=== PATIENT | female | born 1980 | race Caucasian/White ===

== ENCOUNTER 2017-06-23 09:57 | Inpatient (IN) | payer MEDICAID, OTHER ==
[~2017-06-23] VITALS: Ht 180.3 cm; Wt 101.1 kg
[2017-06-23] MEDS ORDERED: ACETAMINOPHEN 325 MG TAB PO PRN (10:45)
[2017-06-23] MEDS ORDERED: LORazepam 1 MG TAB PO PRN (10:45)
[2017-06-23] MEDS ORDERED: diphenhydrAMINE HCL 50 MG CAP PO PRN (10:45)
[2017-06-23] MEDS ORDERED: MAGNESIUM HYDROXIDE SUSP 30 ML CUP PO PRN (10:45)
[2017-06-23] MEDS ORDERED: diphenhydrAMINE HCL 50 MG/ML VIAL IM PRN (10:45)
[2017-06-23] MEDS ORDERED: ALUMINUM/MAGNESIUM/SIMETH 30 ML CUP PO PRN (10:45)
[2017-06-23] MEDS ORDERED: LORazepam 2 MG/ML VIAL IM PRN (10:45)
--- NOTE | 2017-06-23 10:52 | HHI.HP ---
Provisional Diagnosis Admission Date Jun 23, 2017 at 10:34 [place]. Bipolar disorder Certification of Person's Competence To Provide Express and Informed Consent I have personally examined Natalya Steve , a person being served at [facility] on, Jun 23, 2017 10:44. Express and informed consent means consent voluntarily given in writing, by a competent person, after sufficient explanation and disclosure of the subject matter involved to enable the person to make a knowing and willful decision without any element of force, fraud, deceit, duress, or other form of constraint or coercion. This person is 18 years of age or older, is not now known to be incompetent to consent to treatment with a guardian advocate, and does not have a health care surrogate or proxy currently making medical treatment decisions. I have found this person to be one of the following: [X] Competent to provide express and informed consent, as defined above, for voluntary admission to this facility and is competent to provide express and informed consent for treatment. He/she has the consistent capacity to make well reasoned, willful, and knowing decisions concerning his or her medical or mental health treatment. The person fully and consistently understands the purpose of the admission for examination/placement and is fully capable of personally exercising all rights assured under [place] Incompetent to provide express and informed consent to voluntary admission, and this is incompetent to provide express and informed consent to treatment. The person must be transferred to involuntary status and a petition for a guardian advocate filed with the Circuit Court. [] Refusing to provide express and informed consent to voluntary admission but is competent to provide express and informed consent for treatment. The person must be discharged or transferred to involuntary status. Form shall be completed within 24 hours of a person's arrival at the receiving facility and filed in the clinical record of each person: 1. Admitted on a voluntary basis 2. Permitted to provide express and informed consent to his/her own treatment 3. Allowed to transfer from involuntary to voluntary status 4. Prior to permitting a person to consent to his or her own treatment after having been previously found incompetent to consent to treatment. History of Present Illness Capacity: Has Capacity HPI 36-year-old female brought in under a Colón act for suicidal behavior, highly agitated, after the recent breakup of a year plus long relationship. Patient apparently called her daughter this morning and indicated she was feeling suicidal. She also apparently sent her daughter a picture of her having begun to cut her wrists. Daughter is 15 years old and does not live with her mother and instead lives with friends. Patient was very agitated and threatening since her arrival in the [facility] emergency room, using racial epithets, being uncooperative with the rules of changing into hospital gowns, inappropriately attempting to expose herself to this physician, looking for ways to elope, threatening to harm staff members and this physician, etc. This physician did speak with the patient's 15-year-old daughter, who indicates she is afraid for her mother's safety and that her mother has been acting particularly irrational over the last several days, since the breakup of her relationship. She also states her mother has been diagnosed with bipolar disorder but has not been obtaining treatment regularly for an unknown period of time. When confronted with this information, the patient did reluctantly admit that she had not been taking her medicines for at least a month. She refused to speak with this physician and threatened to throw coffee on this physician. She remains a uncooperative historian/patient and required physical locked seclusion. Review of Systems Psychiatric: COMPLAINS OF: Mood changes, Agitation, Suicidal Ideation Except as stated in HPI: all other systems reviewed are Neg Past Psych History Psychological trauma history Unknown Violence risk - others (6 mos) High Violence risk - self (6 mos) High Substance Abuse History Drugs/Alcohol past 12 months Denied Past Family Social History Coded Allergies: No Known Allergies (Unverified , 06/23/17) Per pt. Current Medications Medications (Trade) Dose Ordered Sig/Krystina Route Start Time Stop Time Status Last Admin (Ativan) 1 mg Q6H PRN PO 06/23/17 10:45 (Ativan Inj) 1 mg Q6H PRN IM 06/23/17 10:45 (Benadryl) 50 mg Q6H PRN PO 06/23/17 10:45 (Benadryl Inj) 50 mg Q6H PRN IM 06/23/17 10:45 (Tylenol) 650 mg Q4H PRN PO 06/23/17 10:45 (Milk Of Magnesia Liq) 30 ml DAILY PRN PO 06/23/17 10:45 (Mag-Al Plus Susp Liq) 30 ml Q6H PRN PO 06/23/17 10:45 Family Psych History Positive for mood disorders. Social History Patient lives alone and daughter states she has had patient live with her previously. Patient is not welcome at daughters home due to patient's previously inappropriate behavior. Patient's boyfriend apparently had discussed marriage with patient prior to breaking up with her. As stated above , patient has been noncompliant with medicines for bipolar disorder. She denies history of alcohol and drug abuse. Patient's Strengths (min. 2) GENERAL: SKIN: Warm and dry. HEAD: Normocephalic. EYES: No scleral icterus. No injection or drainage. NECK: Supple, trachea midline. No JVD or lymphadenopathy. CARDIOVASCULAR: Regular rate and rhythm without murmurs, gallops, or rubs. RESPIRATORY: Breath sounds equal bilaterally. No accessory muscle use. GASTROINTESTINAL: Abdomen soft, non-tender, nondistended. MUSCULOSKELETAL: No cyanosis, or edema. BACK: Nontender without obvious deformity. No CVA tenderness. Physical Exam GENERAL: SKIN: Warm and dry. HEAD: Normocephalic. EYES: No scleral icterus. No injection or drainage. NECK: Supple, trachea midline. No JVD or lymphadenopathy. CARDIOVASCULAR: Regular rate and rhythm without murmurs, gallops, or rubs. RESPIRATORY: Breath sounds equal bilaterally. No accessory muscle use. GASTROINTESTINAL: Abdomen soft, non-tender, nondistended. MUSCULOSKELETAL: No cyanosis, or edema. BACK: Nontender without obvious deformity. No CVA tenderness. Mental Status Examination Appearance: Appropriate, Disheveled Consciousness: Alert Orientation: x4 Motor Activity: Normal gait Speech: Rapid Language: Adequate Fund of Knowledge: Adequate Attention and Concentration: Inadequate Memory: Unremarkable Mood: Angry, Oppositional, Irritable Affect: Irritable, Labile Thought Process & Associations: Intact Thought Content: Other Hallucination Type: None Delusion Type: None Suicidal Ideation: Yes Suicidal Plan: Yes Suicidal Intention: Yes Homicidal Ideation: No Homicidal Plan: No Homicidal Intention: No Insight: Fair Judgment: Poor Assessment & Plan Problem List: (1) Bipolar disorder, curr episode mixed, severe, w/o psychotic features ICD Codes: F31.63 - Bipolar disorder, current episode mixed, severe, without psychotic features Assessment & Plan Estimated LOS: days. 36-year-old female under Colón act for suicidal ideation and suicidal behavior, including attempt to cut her wrists. Currently extremely agitated, physically and verbally threatening, uncooperative, showing poor judgment and poor insight. Patient has required physical and chemical restraints in the emergency department due to her ongoing aggressive behavior. She is felt to be at high risk for harm to self and others and is therefore being admitted for further evaluation and treatment. This physician has ordered a CBC and comprehensive metabolic panel to determine if any infectious process or metabolic process is causing or contributing to her mood disorder. Additionally, this physician has ordered thyroid stimulating hormone levels, vitamin B-12 level and vitamin D level, as deficiencies in these areas can also contribute to her mood disorder. This physician has asked for a hospitalist consult as the patient is overweight and hypertensive at this time as well as uncooperative with history and physical. Furthermore, this physician has ordered an EKG to determine the patient's cardiac conduction status prior to significant alterations in her psychotropic medicines, which can be problematic for her heart. This physician spoke with the patient's nurse, Katlin and the patient's daughter for further information about the patient's recent behavior. Case management will also be involved to assist with further information gathering and disposition planning. Agustin Aguillon MD Jun 23, 2017 10:52
[2017-06-23 10:55] VITALS: BP 117/75; PULSE 88; RESP 18; TEMP 97.3; O2SAT 99
[2017-06-23] MEDS ORDERED: LORazepam 2 MG/ML VIAL IM ONE (11:00)
[2017-06-23] MEDS ORDERED: ZIPRASIDONE MESYLATE 20 MG VIAL IM ONE (11:00)
[2017-06-23] MEDS ORDERED: diphenhydrAMINE HCL 50 MG/ML VIAL IM ONE (11:00)
[2017-06-23] MEDS: CITALOPRAM HYDROBROMIDE 40 MG TAB PO SCH (12:00)
--- NOTE | 2017-06-23 12:12 | PD.CONS ---
HPI Service [facility] Consult Requested By Dr. Aguillon Reason for Consult Consulted for medical history and treatment if needed Primary Care Physician No Primary Care Physician Diagnoses: History of Present Illness This is a 36-year-old female with a history of bipolar disorder who presented with suicidal ideation was [place] henao. Patient did try to cut her left wrist. Denies any pain at the site. She is nurse was present during the interview. Patient stated that she has no medical conditions and no complaints. On review system review to patient and negative. Past Family Social History Allergies: Coded Allergies: No Known Allergies (Unverified , 06/23/17) Per pt. Past Medical History Bipolar disorder Past Surgical History Craniotomy with removal colloid mass Reported Medications Latuda Celexa Active Ordered Medications Current Medications Lorazepam (Ativan) 1 mg Q6H PRN PO MODERATE TO SEVERE ANXIETY; Start 06/23/17 at 10:45 Lorazepam (Ativan Inj) 1 mg Q6H PRN IM MODERATE TO SEVERE ANXIETY; Start 06/23 at 10:45 Diphenhydramine HCl (Benadryl) 50 mg Q6H PRN PO For mild anxiety and/or EPS; Start 06/23/17 at 10:45 Diphenhydramine HCl (Benadryl Inj) 50 mg Q6H PRN IM For mild anxiety and/or EPS ; Start 06/23/17 at 10:45 Acetaminophen (Tylenol) 650 mg Q4H PRN PO Pain 1-5 or Temp >101F; Start at 10:45 Magnesium Hydroxide (Milk Of Magnesia Liq) 30 ml DAILY PRN PO CONSTIPATION; Start 06/23/17 at 10:45 Al Hydrox/Mg Hydrox/Simethicone (Mag-Al Plus Susp Liq) 30 ml Q6H PRN PO DYSPEPSIA; Start 06/23/17 at 10:45 Ziprasidone (Geodon Inj) 20 mg ONCE ONCE IM Last administered on 06/23/17 11 :29; Start 06/23/17 at 11:00; Stop 06/23/17 at 11:03; Status DC Diphenhydramine HCl (Benadryl Inj) 50 mg ONCE ONCE IM Last administered on 11:15; Start 06/23/17 at 11:00; Stop 06/23/17 at 11:03; Status DC Lorazepam (Ativan Inj) 2 mg ONCE ONCE IM Last administered on 06/23/17t 11:15 ; Start 06/23/17 at 11:00; Stop 06/23/17 at 11:03; Status DC Lurasidone HCl (Latuda) 80 mg WITH DINNER PO ; Start 06/23/17 at 18:00 Citalopram Hydrobromide (CeleXA) 40 mg DAILY PO ; Start 06/23/17 at 12:00 Family History Past family history reviewed per patient all negative. Social History Patient smokes one pack per day of tobacco for about 14 years. Occasional disease alcohol. Denies any illicit drug use. Physical Exam Vital Signs Vital Signs Date Time Temp Pulse Resp B/P (MAP) Pulse Ox O2 Delivery O2 Flow Rate FiO2 06/23/17 10:55 97.3 88 18 117/75 (89) 99 Room Air Physical Exam GENERAL: This is a well-nourished, well-developed patient, in no apparent distress. SKIN: Left wrist with a horizontal superficial wound. No discharge noted. HEAD: Atraumatic. Normocephalic. No temporal or scalp tenderness. EYES: Pupils equal round and reactive. Extraocular motions intact. No scleral icterus. No injection or drainage. ENT: Nose without bleeding, purulent drainage or septal hematoma. Throat without erythema, tonsillar hypertrophy or exudate. Uvula midline. Airway patent. NECK: Trachea midline. No JVD or lymphadenopathy. Supple, nontender, no meningeal signs. CARDIOVASCULAR: Regular rate and rhythm without murmurs, gallops, or rubs. RESPIRATORY: Clear to auscultation. Breath sounds equal bilaterally. No wheezes , rales, or rhonchi. GASTROINTESTINAL: Abdomen soft, non-tender, nondistended. No hepato-splenomegaly , or palpable masses. No guarding. MUSCULOSKELETAL: Extremities without clubbing, cyanosis, or edema. No joint tenderness, effusion, or edema noted. No calf tenderness. Negative Homans sign bilaterally. NEUROLOGICAL: Awake and alert. Cranial nerves II through XII intact. Motor and sensory grossly within normal limits. Five out of 5 muscle strength in all muscle groups. Normal speech. Assessment and Plan Assessment and Plan This is a 36-year-old female who was Colón act secondary to suicidal ideation Bipolar disorder/suicide ideation/Colón act -Patient admitted to inpatient psych. Management per psychiatrist. Superficial left wrist laceration -No infection noted. Will give back to trace and. DVT prophylaxis -Encourage ambulation. Patient has no past medical history except for bipolar disorder. Her vitals are stable. There are no active issues. Will sign off. Please call for any concerns. Discussed Condition With patient and his nurse in [place] Idalia Menon MD Jun 23, 2017 12:12
--- NOTE | 2017-06-23 12:36 | PD ---
HPI Chief Complaint: Psychiatric Symptoms Time Seen by Provider: 12:34 Travel History International Travel<30 days: No Contact w/Intl Traveler<30days: No Traveled to known affect area: No History of Present Illness HPI 36 year female presents to the emergency department as a Colón act from [facility]. Patient complains of suicidal ideations. Patient says that she was recently dumped by her significant other and started developing these feelings. Patient denies fever or chills. Denies shortness of breath, chest pain, nausea, vomiting, diarrhea. Patient denies hallucinations. Denies ingestions. [facility] Past Medical History Medical History: Unable to Obtain Diminished Hearing: No Tetanus Vaccination: Unknown ?: Unknown Past Surgical History Surgical History: Unable to Obtain Social History Tobacco Use: No Allergies-Medications (Allergen,Severity, Reaction): Coded Allergies: No Known Allergies (Unverified , 06/23/17) Per pt. Review of Systems Except as stated in HPI: all other systems reviewed are Neg Physical Exam Narrative GENERAL: Well-nourished, well-developed patient. SKIN: Focused skin assessment warm/dry. HEAD: Normocephalic. EYES: No scleral icterus. No injection or drainage. NECK: Supple, trachea midline. No JVD or lymphadenopathy. CARDIOVASCULAR: Regular rate and rhythm without murmurs, gallops, or rubs. RESPIRATORY: Breath sounds equal bilaterally. No accessory muscle use. MUSCULOSKELETAL: No cyanosis, or edema. BACK: Nontender without obvious deformity. No CVA tenderness. Data Data Orders Orders Diet Regular Basic (06/23/17 Lunch) ^ Other Nursing Orders (06/23/17 10:31) Admit Order (Ed Use Only) (06/23/17 10:32) [facility] Medical Decision Making Medical Screen Exam Complete: Yes Emergency Medical Condition: Yes Differential Diagnosis Suicidal ideations, homicidal ideations, bipolar, Narrative Course 36 year female presents to the emergency department as a Colón act from [facility]. Patient complains of suicidal ideations. Patient says that she was recently dumped by her significant other and started developing these feelings. Patient denies fever or chills. Denies shortness of breath, chest pain, nausea, vomiting, diarrhea. Patient denies hallucinations. Denies ingestions. Vital signs stable In the emergency department, patient required Geodon, Ativan, and Benadryl for sedation as she became agitated and is concerned for her safety and others. Patient is a transfer from [place]. Please refer to these notes as well regarding her care. Patient is cleared to see psych. Patient will be admitted to psych for further treatment and evaluation. Diagnosis Primary Impression: Suicidal ideations Condition: Stable Teri Butler Jun 23, 2017 12:36
[2017-06-23] MEDS: BACITRACIN TOP OINT 15 GM TUBE TOPICAL SCH ×2 (15:13→21:00)
[2017-06-23 16:27] VITALS: BP 130/80; PULSE 80; RESP 18; TEMP 98.1; O2SAT 97
[2017-06-23] MEDS: LURASIDONE 80 MG TAB PO SCH (17:30)
[2017-06-24 06:38] VITALS: BP 128/66; PULSE 63; RESP 16; TEMP 97.6; O2SAT 98
[2017-06-24 08:27] LABS: AUTOMATED NEUTROPHIL # 5.8 TH/MM3 (1.8-7.7); BASOPHIL # 0.1 TH/MM3 (0-0.2); BASOPHIL % 0.7 % (0.0-2.0); EOSINOPHIL # 0.2 TH/MM3 (0-0.4); EOSINOPHIL % 1.8 % (0.0-4.0); HEMOGLOBIN 14.6 GM/DL (11.6-15.3); LYMPH % 27.9 % (9.0-44.0); LYMPHOCYTE # 2.5 TH/MM3 (1.0-4.8); MEAN CELL VOLUME 88.7 FL (80.0-100.0); MEAN CORPUSCULAR HEMOGLOBIN 29.4 PG (27.0-34.0); MEAN CORPUSCULAR HGB CONC 33.1 % (32.0-36.0); MEAN PLATELET VOLUME 8.4 FL (7.0-11.0); MONO % 5.4 % (0.0-8.0); MONOCYTE # 0.5 TH/MM3 (0-0.9); NEUT % 64.2 % (16.0-70.0); PLATELET COUNT 276 TH/MM3 (150-450); RED BLOOD COUNT 4.96 MIL/MM3 (4.00-5.30); RED CELL DISTRIBUTION WIDTH 13.4 % (11.6-17.2)
[2017-06-24 08:43] LABS: ALBUMIN 3.2 GM/DL (3.4-5.0); AST (GOT) 12 U/L (15-37); BICARBONATE 29.6 MEQ/L (21.0-32.0); BLOOD UREA NITROGEN 6 MG/DL (7-18); CALCIUM 8.8 MG/DL (8.5-10.1); CHLORIDE 108 MEQ/L (98-107); CHOLESTEROL 113 MG/DL (120-200); CREATININE 0.79 MG/DL (0.50-1.00); GLOMERULAR FILTRATION RATE 82 ML/MIN (>89); GLUCOSE,RANDOM 73 MG/DL (74-106); SODIUM (NA) 143 MEQ/L (136-145)
[2017-06-24] MEDS: BACITRACIN TOP OINT 15 GM TUBE TOPICAL SCH ×2 (09:00→20:16)
[2017-06-24 09:10] LABS: ALKALINE PHOSPHATASE 57 U/L (45-117); ALT (GPT) 15 U/L (10-53); CHOLESTEROL/ HDL RATIO 2.29 RATIO; HDL CHOLESTEROL 49.2 MG/DL (40.0-60.0); LDL CHOLESTEROL 47 MG/DL (0-99); TOTAL BILIRUBIN ADULT 0.4 MG/DL (0.2-1.0); TOTAL PROTEIN 6.3 GM/DL (6.4-8.2); TRIGLYCERIDES 86 MG/DL (42-150)
[2017-06-24] MEDS: CITALOPRAM HYDROBROMIDE 40 MG TAB PO SCH (09:39)
[2017-06-24] MEDS ORDERED: ERGOCALCIFEROL (VIT D2) 50,000 UNIT CAP PO SCH (13:00)
--- NOTE | 2017-06-24 15:11 | HHI.PYPN ---
Subjective Remarks Patient was seen and case discussed with nursing. Patient is perseverative on discharge. She is labile, impulsive and minimizing her reasons for admission. Personality disorder is clearly a factor. Has not needed any ETO's. Compliant with medications area and is sarcastic concerning suicide, denies plan or intent doing so or cutting Mental Status Examination Appearance: Appropriate, Disheveled Consciousness: Alert Orientation: x4 Motor Activity: Normal gait Speech: Rapid Language: Adequate Fund of Knowledge: Adequate Attention and Concentration: Inadequate Memory: Unremarkable Mood: Angry, Oppositional, Irritable Affect: Irritable, Labile Thought Process & Associations: Intact Thought Content: Other Hallucination Type: None Delusion Type: None Suicidal Ideation: No Suicidal Plan: No Suicidal Intention: No Homicidal Ideation: No Homicidal Plan: No Homicidal Intention: No Insight: Fair Judgment: Poor Results Labs Test 06/24/17 06:32 White Blood Count 9.0 TH/MM3 Red Blood Count 4.96 MIL/MM3 Hemoglobin 14.6 GM/DL Hematocrit 44.0 % Mean Corpuscular Volume 88.7 FL Mean Corpuscular Hemoglobin 29.4 PG Mean Corpuscular Hemoglobin Concent 33.1 % Red Cell Distribution Width 13.4 % Platelet Count 276 TH/MM3 Mean Platelet Volume 8.4 FL Neutrophils (%) (Auto) 64.2 % Lymphocytes (%) (Auto) 27.9 % Monocytes (%) (Auto) 5.4 % Eosinophils (%) (Auto) 1.8 % Basophils (%) (Auto) 0.7 % Neutrophils # (Auto) 5.8 TH/MM3 Lymphocytes # (Auto) 2.5 TH/MM3 Monocytes # (Auto) 0.5 TH/MM3 Eosinophils # (Auto) 0.2 TH/MM3 Basophils # (Auto) 0.1 TH/MM3 CBC Comment DIFF FINAL Differential Comment Blood Urea Nitrogen 6 MG/DL Creatinine 0.79 MG/DL Random Glucose 73 MG/DL Total Protein 6.3 GM/DL Albumin 3.2 GM/DL Calcium Level 8.8 MG/DL Alkaline Phosphatase 57 U/L Aspartate Amino Transf (AST/SGOT) 12 U/L Alanine Aminotransferase (ALT/SGPT) 15 U/L Total Bilirubin 0.4 MG/DL Sodium Level 143 MEQ/L Potassium Level 4.0 MEQ/L Chloride Level 108 MEQ/L Carbon Dioxide Level 29.6 MEQ/L Anion Gap 5 MEQ/L Estimat Glomerular Filtration Rate 82 ML/MIN Hemoglobin A1c 5.0 % Triglycerides Level 86 MG/DL Cholesterol Level 113 MG/DL LDL Cholesterol 47 MG/DL HDL Cholesterol 49.2 MG/DL Cholesterol/HDL Ratio 2.29 RATIO Vitamin B12 Level 738 PG/ML 25-Hydroxy Vitamin D Total 14.2 ng/ML Thyroid Stimulating Hormone 3rd Gen 1.360 uIU/ML Vitals/IOs Vital Signs Date Time Temp Pulse Resp B/P (MAP) Pulse Ox O2 Delivery O2 Flow Rate FiO2 06/24/17 06:38 97.6 63 16 128/66 (86) 98 06/23/17 10:55 Room Air Assessment & Plan Problem List: (1) Bipolar disorder, curr episode mixed, severe, w/o psychotic features ICD Codes: F31.63 - Bipolar disorder, current episode mixed, severe, without psychotic features Assessment & Plan Continue current treatment plan Justification for Cont. Inpt. Patient would decompensate in a less restrictive setting Ben Miranda DO Jun 24, 2017 15:11
[2017-06-24] MEDS: LURASIDONE 80 MG TAB PO SCH (18:07)
[2017-06-25] MEDS: BACITRACIN TOP OINT 15 GM TUBE TOPICAL SCH ×2 (09:39→21:00)
[2017-06-25] MEDS: CITALOPRAM HYDROBROMIDE 40 MG TAB PO SCH (09:39)
--- NOTE | 2017-06-25 11:05 | HHI.PR ---
Subjective Remarks Follow up bipolar disorder, suicidal ideation and left wrist laceration. Patient seen and examined in room, lying in bed comfortably. Requesting to go home. Denies any new acute complaints. Lacerating open to air, no drainage, healing. Objective Result Diagram: 06/24/1763106/24/17631 Objective Remarks GENERAL: This is a well-nourished, well-developed patient, in no apparent distress. SKIN: Left wrist with a horizontal superficial wound. No discharge noted. Open to air. HEAD: Atraumatic. Normocephalic. No temporal or scalp tenderness. EYES: Pupils equal round and reactive. Extraocular motions intact. No scleral icterus. No injection or drainage. ENT: Nose without bleeding, purulent drainage or septal hematoma. Throat without erythema, tonsillar hypertrophy or exudate. Uvula midline. Airway patent. NECK: Trachea midline. No JVD or lymphadenopathy. Supple, nontender, no meningeal signs. CARDIOVASCULAR: Regular rate and rhythm without murmurs, gallops, or rubs. RESPIRATORY: Clear to auscultation. Breath sounds equal bilaterally. No wheezes , rales, or rhonchi. GASTROINTESTINAL: Abdomen soft, non-tender, nondistended. No guarding. MUSCULOSKELETAL: Extremities without clubbing, cyanosis, or edema. No joint tenderness, effusion, or edema noted. NEUROLOGICAL: Awake and alert. Cranial nerves II through XII intact. Motor and sensory grossly within normal limits. Five out of 5 muscle strength in all muscle groups. Normal speech. A/P Assessment and Plan This is a 36-year-old female who was Colón act secondary to suicidal ideation Bipolar disorder/suicide ideation/Colón act - Patient admitted to inpatient psych. Management per psychiatrist. Superficial left wrist laceration - No infection noted. - No drainage. - Open to air. DVT prophylaxis - Encourage ambulation. Patient is stable at this time. Will sign off, reconsult if needed. Zonia Duff Jun 25, 2017 11:05
--- NOTE | 2017-06-25 13:10 | HHI.PYPN ---
Subjective Remarks Patient was seen and case discussed with nursing. Patient is less labile today but continues to have many temper tantrums. She was irritable with nursing this morning after he took her bra away given that had a metal wire inside. She remains very perseverative on discharge and minimizes her cutting in her reasons for admission. She is spending her time as "just sleeping my time away so I can go." Compliant with her medications. Mostly seclusive Mental Status Examination Appearance: Appropriate, Disheveled Consciousness: Alert Orientation: x4 Motor Activity: Normal gait Speech: Rapid Language: Adequate Fund of Knowledge: Adequate Attention and Concentration: Inadequate Memory: Unremarkable Mood: Angry, Oppositional, Irritable Affect: Irritable, Labile Thought Process & Associations: Intact Thought Content: Other Hallucination Type: None Delusion Type: None Suicidal Ideation: No Suicidal Plan: No Suicidal Intention: No Homicidal Ideation: No Homicidal Plan: No Homicidal Intention: No Insight: Fair Judgment: Poor Results Vitals/IOs Vital Signs Date Time Temp Pulse Resp B/P (MAP) Pulse Ox O2 Delivery O2 Flow Rate FiO2 06/24/17 06:38 97.6 63 16 128/66 (86) 98 06/23/17 10:55 Room Air Assessment & Plan Problem List: (1) Bipolar disorder, curr episode mixed, severe, w/o psychotic features ICD Codes: F31.63 - Bipolar disorder, current episode mixed, severe, without psychotic features Assessment & Plan Continue current treatment plan Justification for Cont. Inpt. Patient would decompensate in a less restrictive setting Ben Miranda DO Jun 25, 2017 13:10
[2017-06-25 18:00] VITALS: BP 127/77; PULSE 104; RESP 16; TEMP 99; O2SAT 100
[2017-06-25] MEDS: LURASIDONE 80 MG TAB PO SCH (18:37)
[2017-06-26 05:50] VITALS: BP 123/64; PULSE 80; RESP 17; TEMP 97.6; O2SAT 100
[2017-06-26] MEDS: CITALOPRAM HYDROBROMIDE 40 MG TAB PO SCH (08:36)
[2017-06-26] MEDS: BACITRACIN TOP OINT 15 GM TUBE TOPICAL SCH (08:36)
--- NOTE | 2017-06-26 09:10 | EKG ---
Date Performed: 06/24/2017 Time Performed: 16:36:52 PTAGE: 36 years EKG: Sinus rhythm WITH SINUS ARRHYTHMIA POSSIBLE LEFT ATRIAL ENLARGEMENT BORDERLINE ECG NO PREVIOUS TRACING DOCTOR: Rudy Armando Interpretating Date/Time 06/26/2017 09:09:46
[2017-06-26] MEDS ORDERED: CELE40TA PO (10:00)
[2017-06-26] MEDS ORDERED: QC B500O TOPICAL (10:00)
[2017-06-26] MEDS ORDERED: LURA80 PO (10:00)
[2017-06-26] MEDS ORDERED: VITA500012 PO (10:00)
--- NOTE | 2017-06-26 10:01 | HHI.DS ---
Psychiatry Discharge Summary Inpatient Psychiatric care?: Yes Advance Directive: No Reason Not Provided: DEFERRED Mental Health AdvanceDirective: No Health Care Proxy: No Admission Admission Date Jun 23, 2017 at 10:34 Admission Diagnosis: (1) Bipolar disorder, curr episode mixed, severe, w/o psychotic features ICD Code: F31.63 - Bipolar disorder, current episode mixed, severe, without psychotic features Brief History 36-year-old female brought in under a Colón act for suicidal behavior, highly agitated, after the recent breakup of a year plus long relationship. Patient apparently called her daughter this morning and indicated she was feeling suicidal. She also apparently sent her daughter a picture of her having begun to cut her wrists. Daughter is 15 years old and does not live with her mother and instead lives with friends. Patient was very agitated and threatening since her arrival in the [facility] emergency room, using racial epithets, being uncooperative with the rules of changing into hospital gowns, inappropriately attempting to expose herself to this physician, looking for ways to elope, threatening to harm staff members and this physician, etc. This physician did speak with the patient's 15-year-old daughter, who indicates she is afraid for her mother's safety and that her mother has been acting particularly irrational over the last several days, since the breakup of her relationship. She also states her mother has been diagnosed with bipolar disorder but has not been obtaining treatment regularly for an unknown period of time. When confronted with this information, the patient did reluctantly admit that she had not been taking her medicines for at least a month. She refused to speak with this physician and threatened to throw coffee on this physician. She remains a uncooperative historian/patient and required physical locked seclusion. Tobacco Use In Past 30 Days: 5 or More Cigarettes/Day Alcohol Use: 2-4 Times Per Month Hospital Course Patient was admitted to a locked, inpatient psychiatric unit. A general medical consultation was obtained. Appropriate precautions were in place throughout patient's hospital stay. Patient was seen and examined on the unit by psychiatry. Home psychotropic medications were resumed. Patient tolerated psychiatric medications well without side effects. Behavior improved with benefit a resumption of medications. There was no evidence of any suicidality or homicidality on the inpatient unit. On the day of discharge: Patient seen and examined with nurse. Chart reviewed. I note that the patient's Colón act expires this morning and has not been addressed by either the admitting physician or weekend rounding physician. Case discussed with nursing staff reports that the patient has been no behavioral problem overnight. Case discussed with counselor. On my examination today, the patient is requesting discharge from the inpatient psychiatric unit today. She denies any suicidal or homicidal ideation, intent or plan on direct questioning and contracts for safety. She says that she superficially cut herself because "my ex told me to kill myself." She also says that prior to admission her ex had told her to stop her medications and so she had been unmedicated for about 2 weeks prior to self injuring. She denies any history of suicide attempts. She denies any history of nonsuicidal self-injurious behavior. She is adopted and so does not know much about her family history and is unsure whether there is a family history of suicide. She says that the amphetamines in her urine are related to Adderall that is prescribed to her. She does admit to abuse of cannabis. Patient describes her mood as "Andrew," which with clarification I find means good. I can elicit no depressive or hypomanic/manic symptoms at this time. She denies any audiovisual hallucinations. I can elicit no delusional beliefs. There is no evidence of impairment in reality construction in this patient at this time. She denies any side effects from medications. She reports that she has an adequate supply of psychotropic medications at home. She has no physical complaints. With the patient's permission, I have obtained collateral from her daughter, Sharita, at [phone] on the day of discharge. Sharita reports that she has no safety concerns about the patient being discharged home today. She describes the patient's presenting self-injurious behavior as an impulsive reaction to difficulties with ex boyfriend. I have recommended that Sharita secure the home a while potential means of harm to self or others including but not limited to guns, knives and firearms out of an abundance of caution in advance of the patient's return home. I have also educated her regarding the mechanisms to have the patient brought to the emergency room for urgent psychiatric evaluation including Colón act and ex parte. Suicide and violence risk assessment on day of discharge both suggest low imminent risk, although substance use may constitute some degree of chronic risk and I have recommended abstinence from substances going forward. Chemical dependency evaluation and treatment is also recommended. The patient does not meet criteria for involuntary psychiatric hospitalization at this time and her Colón act expires this morning. I have no basis to retain her on the unit over her objection any longer. The patient will be discharged home today with psychiatric follow-up as arranged by counselor. Patient is also to follow-up with primary care. I have counseled the patient to return to the psychiatric emergency room for any concerning psychiatric symptoms. Results Blood Pressure 123 / 64 Vital Signs Date Time Temp Pulse Resp B/P (MAP) Pulse Ox O2 Delivery O2 Flow Rate FiO2 06/26/17 05:50 97.6 80 17 123/64 (83) 100 06/23/17 10:55 Room Air Laboratory Tests Test 06/23/17 11:25 06/24/17 06:32 Urine Amphetamines Screen POS (NEG) Urine Cannabinoids Screen POS (NEG) Blood Urea Nitrogen 6 MG/DL (7-18) Random Glucose 73 MG/DL (74-106) Total Protein 6.3 GM/DL (6.4-8.2) Albumin 3.2 GM/DL (3.4-5.0) Aspartate Amino Transf (AST/SGOT) 12 U/L (15-37) Chloride Level 108 MEQ/L (98-107) Estimat Glomerular Filtration Rate 82 ML/MIN (>89) Cholesterol Level 113 MG/DL (120-200) 25-Hydroxy Vitamin D Total 14.2 ng/ML (30-100) Laboratory Results Test 06/24/17 06:32 Cholesterol Level 113 MG/DL (120-200) HDL Cholesterol 49.2 MG/DL (40.0-60.0) Hemoglobin A1c 5.0 % (4.3-6.0) LDL Cholesterol 47 MG/DL (0-99) Triglycerides Level 86 MG/DL (42-150) Summary of Procedures None done Imaging None done Pending results at discharge: No Medications # of Antipsychotic meds at D/C: 1 Approp Antipsych med options 1 - Minimum of three failed multiple trials of monotherapy. 2 - Documented plan to taper to monotherapy due to previous use of multiple meds OR cross-taper in progress at D/C. 3 - Documentation of augmentation of Clozapine. 4 - Justification other than those listed in allowable values 1-3, document here : Discharge Discharge Date: Jun 26, 2017 Discharge Diagnosis: (1) Adjustment disorder with mixed disturbance of emotions and conduct Diagnosis: Principal (resolved) ICD Code: F43.25 - Adjustment disorder with mixed disturbance of emotions and conduct (2) History of bipolar disorder Diagnosis: Secondary (stable) ICD Code: Z86.59 - Personal history of other mental and behavioral disorders (3) Use of cannabis Diagnosis: Secondary (counseled to quit) ICD Code: F12.90 - Cannabis use, unspecified, uncomplicated Pt Condition on Discharge: Stable Discharge Disposition: Discharge Home Discharge Instructions Diet Instructions: As Tolerated, No Restrictions Activities you can perform: Weight Bearing as Maria G Scheduled Appointment: as per counselor's notes New Orders: BASIC METABOLIC PROF - 1 Week VITAMIN D,25-HYDROXY - 2 Months New Medications: Bacitracin (Topical) (Qc Bacitracin) 500 Unit/Gram Oin 1 APPLIC TOPICAL Q12HR for Antibiotic for 1 Day, TUBE 1 Refill Citalopram (Celexa) 40 Mg Tab 40 MG PO DAILY for Mental Health for 1 Day, #1 TAB 0 Refills Home med. Patient has adequate supply at home. Order is to update med rec only. Ergocalciferol (Ergocalciferol) 50,000 Unit Cap 80563 UNITS PO Q7D for Low vitamin D. for 7 Days, CAP 0 Refills Lurasidone (Latuda) 80 Mg Tab 80 MG PO WITH DINNER for Mental Health for 1 Day, #1 TAB 0 Refills Home med. Patient has adequate supply at home. Order is to update med rec only Discharge Time > 30 minutes Mental Status Examination Appearance: Appropriate, Well dressed/well groomed Consciousness: Alert Orientation: x4 Motor Activity: Normal gait, Other (no motor abnormalities noted) Speech: Unremarkable Language: Adequate Fund of Knowledge: Adequate Attention and Concentration: Adequate Memory: Unremarkable Mood: Appropriate Affect: Appropriate Thought Process & Associations: Intact, Logical, Goal directed, Linear Thought Content: Appropriate Hallucination Type: None Delusion Type: None Suicidal Ideation: No Suicidal Plan: No Suicidal Intention: No Homicidal Ideation: No Homicidal Plan: No Homicidal Intention: No Insight: Fair Judgment: Adequate (fair) Discharge/Advance Care Plan Health Problems: (1) Bipolar disorder, curr episode mixed, severe, w/o psychotic features Goals to promote your health * To prevent worsening of your condition and complications * To maintain your health at the optimal level Directions to meet your goals Take your medications as prescribed Follow your dietary instruction Follow activity as directed Keep your appointments as scheduled Take your immunizations and boosters as scheduled If your symptoms worsen call your PCP, if no PCP go to Urgent Care Center or Emergency Room For 23/01 questions related to your inpatient stay or results of tests pending at discharge, please contact Dr. Eleazar Reilly at Smoking is Dangerous to Your Health. Avoid second hand smoking Eleazar Reilly MD Jun 26, 2017 10:01
== END 2017-06-26 11:00 | disposition home or self-care (01) | DRG 882 ==
LOC: NEPJ 09:57 → NEDA 10:34 → H270 15:48
PROVIDERS: ADMIT Psychiatry & Neurology Psychiatry; ATTEND Psychiatry & Neurology Psychiatry
DX: F43.25 Adjustment disorder with mixed disturbance of emotions and conduct (principal); F31.63 Bipolar disorder, current episode mixed, severe, without psychotic features; F12.90 Cannabis use, unspecified, uncomplicated; F17.210 Nicotine dependence, cigarettes, uncomplicated; S61.512A Laceration without foreign body of left wrist, initial encounter; X78.9XXA Intentional self-harm by unspecified sharp object, initial encounter; E66.3 Overweight; Z68.31 Body mass index [BMI] 31.0-31.9, adult
CPT/HCPCS: 80053; 80061; 80307; 82306; 82607; 83036; 84443; 85025; 93005; J1200; J2060; J3486